=== PATIENT | female | born 1970 | race Caucasian/White ===

== ENCOUNTER 2018-01-14 12:32 | Emergency (ER) | payer OTHER ==
[~2018-01-14] VITALS: Ht 157.5 cm; Wt 90.3 kg
[2018-01-14 12:41] VITALS: BP 111/80
--- NOTE | 2018-01-14 12:53 | Emergency Room Report ---
History of Present Illness General Chief Complaint: General Complaint Source: Patient Present Illness HPI Pt. reports to the ED [place] N/V/D x 2 days, increased acid reflux, nasal congestion with rhinorrhea and soreness in the right ankle. pt. denies fevers or chills. pt. denies recent travel or ill contacts. pt. denies blood in the vomit or urine. No blood in the stool or black stools pt. denies .denies dysuria, hematuria or low back pain. pt denies trauma or fall. pt. reports that she has some swelling in the right ankle and is requesting an kishan wrap. Denies abdominal pain or tenderness. reports epigastric burning. Pt. reports cramping just prior to BM's. Denies CP, dizziness, or syncope. Allergies: Coded Allergies: No Known Allergies (Unverified , 01/14/18) Patient History Past Medical History: see triage record Past Surgical History: none Pertinent Family History: none Last Menstrual Period: 11/03? Immunizations: UTD Reviewed Nursing Documentation: PMH: Agreed; PSxH: Agreed Nursing Documentation-PMH Past Medical History: No History, Except For Hx Asthma: Yes Review of Systems All Other Systems: negative except mentioned in HPI Physical Exam Vital Signs Date Time Temp Pulse Resp B/P (MAP) Pulse Ox O2 Delivery O2 Flow Rate FiO2 01/14/18 12:36 97.6 98 22 111/80 95 Room Air 97.5 Sp02 EP Interpretation: reviewed, normal General Appearance: no apparent distress, alert, GCS 15, non-toxic Head: normocephalic, atraumatic Eyes: bilateral eye normal inspection, bilateral eye PERRL ENT: hearing grossly normal, normal voice, moist mucus membranes, nasal congestion Neck: full range of motion Respiratory: chest non-tender, lungs clear, normal breath sounds, no wheezing, speaking full sentences Cardiovascular #1: regular rate, rhythm, no edema, normal capillary refill Gastrointestinal: normal bowel sounds - mildly hyperactive in all 4 quadrants, non tender, soft Genitourinary: normal inspection, no CVA tenderness Musculoskeletal: back normal, gait/station normal, normal range of motion, tender - mild ttp to the anterior right ankle, no obvious swelling, bruising or erythema, no deformities, pt. ambulatory with normal gait. Neurologic: alert, oriented x3, responsive, motor strength/tone normal, sensory intact, normal gait, speech normal, grossly normal Psychiatric: judgement/insight normal Skin: normal color, no rash, warm/dry, well hydrated Medical Decision Making PA Attestation Dr. Newell is my supervising Physician whom patient management has been discussed with. Diagnostic Impression: Primary Impression: Gastritis Qualified Codes: K29.70 - Gastritis, unspecified, without bleeding Additional Impressions: Ankle pain, right Qualified Codes: M25.571 - Pain in right ankle and joints of right foot GERD (gastroesophageal reflux disease) Qualified Codes: K21.9 - Gastro-esophageal reflux disease without esophagitis Nasal congestion ER Course Pt. reports to the ED [place] N/V/D x 2 days, increased acid reflux, nasal congestion with rhinorrhea and soreness in the right ankle. pt. denies fevers or chills. pt. denies recent travel or ill contacts. pt. denies blood in the vomit or urine. No blood in the stool or black stools pt. denies .denies dysuria, hematuria or low back pain. pt denies trauma or fall. pt. reports that she has some swelling in the right ankle and is requesting an kishan wrap. Denies abdominal pain or tenderness. reports epigastric burning. Pt. reports cramping just prior to BM's. Denies CP, dizziness, or syncope. Ddx considered but are not limited to GE, colitis, acute appy, SBO, Cyclical Vomiting secondary to THC, Vital signs: pt. is afebrile, H&PE are most consistent with GE most likely viral in etiology, no evidence to suggest acute abdomen on physical exam. no obvious signs of dehydration. ORDERS: -Urine Hcg : negative -UA: WNL ED INTERVENTIONS: - Zofran - GI Cocktail + Pepcid -I do not identify an emergent condition at this time. With current presentation , pt. is stable for close outpatient follow up and conservative treatment. D/ w pt. to return promptly to ED with worsening or new symptoms.- Pt. verbalizes understanding and agreement with proposed treatment plan.proposed treatment plan. DISCHARGE: At this time pt. is stable for d/c to home. Will provide printed patient care instructions, and any necessary prescriptions. Care plan and follow up instructions have been discussed with the patient prior to discharge. Labs Test 01/14/18 13:04 Urine Color Yellow Urine Appearance Clear Urine pH 5 (4.5-8.0) Urine Specific Yolyn 1.020 (1.005-1.035) Urine Protein 1+ (NEGATIVE) Urine Glucose (UA) Negative (NEGATIVE) Urine Ketones Negative (NEGATIVE) Urine Blood Negative (NEGATIVE) Urine Nitrite Negative (NEGATIVE) Urine Bilirubin Negative (NEGATIVE) Urine Urobilinogen Normal MG/DL (0.0-1.0) Urine Leukocyte Esterase 1+ (NEGATIVE) Urine RBC 0 /HPF (0 - 2) Urine WBC 0-2 /HPF (0 - 2) Urine Squamous Epithelial Cells Occasional /LPF Urine Bacteria Occasional /HPF (NONE) Urine HCG, Qualitative Negative (NEGATIVE) Last Vital Signs Date Time Temp Pulse Resp B/P (MAP) Pulse Ox O2 Delivery O2 Flow Rate FiO2 01/14/18 12:41 97.5 98 22 111/80 95 Room Air 97.5 Disposition: HOME, SELF-CARE Condition: Stable Scripts Mometasone Furoate (NASONEX) 17 Gm [place].pump 2 SPRAYS NASAL DAILY, #17 GM 0 Refills Prov: Vale Mims 01/14/18 Dicyclomine Hcl* (DICYCLOMINE HCL*) 10 Mg Capsule 10 MG PO TID for 2 Days, #6 CAP Prov: Vale Mims 01/14/18 Ondansetron* (ZOFRAN*) 4 Mg Tablet 4 MG ORAL Q6H PRN for Nausea & Vomiting, #10 TAB Prov: Vale Mims 01/14/18 Ranitidine Hcl* (ZANTAC*) 150 Mg Tablet 150 MG ORAL TWICE A DAY for 7 Days, #14 TAB Prov: Vale Mims 01/14/18 Patient Instructions: Gastritis, Adult, [id number], Nausea and Vomiting, Adult, [id number] Additional Instructions: Take medications as directed. Follow up with a Primary Care Provider in 3-5 days, even if your symptoms have resolved. --Please review list of primary care clinics, if you do not already have a primary care provider Return sooner to ED if new symptoms occur, or current symptoms become worse. - Please note that this Emergency Department Report was dictated using [employer] consultant technology software, occasionally this can lead to erroneous entry secondary to interpretation by the dictation equipment. Vale Mims Jan 14, 2018 12:52
[2018-01-14] MEDS ORDERED: Dicyclomine HCl 10mg/5ml oral soln ORAL ONE (13:00)
[2018-01-14] MEDS ORDERED: Lidocaine 2% Visc 15ml soln ORAL ONE (13:15)
[2018-01-14 13:20] LABS: APPEARANCE,URINE CLEAR; BILIRUBIN, URINE NEGATIVE (NEGATIVE); GLUCOSE, URINE (UA) NEGATIVE (NEGATIVE); KETONES,URINE NEGATIVE (NEGATIVE); LEUKOCYTE ESTERASE ,URINE 1+ (NEGATIVE); NITRITE,URINE NEGATIVE (NEGATIVE); PH,URINE 5 (4.5-8.0); PROTEIN,URINE 1+ (NEGATIVE); UROBILINOGEN,URINE NORMAL MG/DL (0.0-1.0)
[2018-01-14 13:27] LABS: COLOR,URINE YELLOW
[2018-01-14] MEDS ORDERED: DICYCLOMINE HCL10 MG PO (13:46)
[2018-01-14] MEDS ORDERED: NASONEX17 GM NASAL (13:46)
[2018-01-14] MEDS ORDERED: ZANTAC150 MG ORAL (13:46)
[2018-01-14] MEDS ORDERED: ZOFRAN4 M3 ORAL (13:46)
[2018-01-14 14:02] VITALS: BP 111/80
== END 2018-01-14 13:58 | disposition home or self-care (01) ==
LOC: EMR 13:40
DX: K29.70 Gastritis, unspecified, without bleeding (principal); M25.571 Pain in right ankle and joints of right foot
CPT/HCPCS: 81003; 81025; 99284